=== PATIENT | male | born 1985 | race Caucasian/White ===

== ENCOUNTER 2016-10-14 08:54 | Emergency (ER) | payer SELFPAY ==
[~2016-10-14] VITALS: Ht 180.3 cm; Wt 113.0 kg
[2016-10-14 08:55] VITALS: BP 174/103; PULSE 66; RESP 18; TEMP 98.4; O2SAT 99
[2016-10-14] MEDS ORDERED: SODIUM CHLOR 0.9% 1000 ML INJ 1,000 ML IV SCH (09:17)
[2016-10-14 09:18] VITALS: RESP 17; O2SAT 98
[2016-10-14] MEDS: SODIUM CHLORIDE 0.9% FLUSH 10 ML FLUSH IV FLUSH PRN ×2 (09:25→10:30)
--- NOTE | 2016-10-14 09:25 | PD ---
HPI Chief Complaint: Complaint Time Seen by Provider: 09:16 Travel History International Travel<30 days: No Contact w/Intl Traveler<30days: No Traveled to known affect area: No History of Present Illness HPI The patient is a 31-year-old male who presents emergency department for one week history of right flank pain. The patient complains of right mid back pain that radiates to the right flank with a lot of suprapubic pressure and discomfort. The patient does have a previous history of left nephrectomy, donated to his uncle in 2002 in [place], [place]. Patient has a history of previous kidney stones with similar symptoms, but denies any dysuria or visible hematuria. The symptoms have been ongoing for a week, pain is currently 9/10, radiates to the suprapubic region with pressure, was associated with one episode of syncopal micturition yesterday. Symptoms are moderate, similar to previous kidney stones, and there are no current alleviating factors. PFSH Past Medical History Narrative Medical Denies Past Surgical History Narrative Surgical Left nephrectomy Social History Tobacco Use: Yes Allergies-Medications (Allergen,Severity, Reaction): Coded Allergies: Tramadol (Verified Adverse Reaction, Severe, VOMITING, 10/14/16) Reported Meds & Prescriptions Reported Meds & Active Scripts Active Fowler (Hydrocodone-Acetaminophen) 5-325 mg Tab 1 Tab PO Q6H PRN Ibuprofen 600 Mg Tab 600 Mg PO Q6H PRN Review of Systems Except as stated in HPI: all other systems reviewed are Neg General / Constitutional: No: Fever Cardiovascular: No: Chest Pain or Discomfort Respiratory: Positive: Shortness of Breath Gastrointestinal: Positive: Nausea, Abdominal Pain, No: Vomiting, Diarrhea Genitourinary: Positive: Flank Pain, Other (suprapubic pressure), No: Dysuria Neurologic: Positive: Paresthesia (facial paresthesias) Physical Exam Narrative GENERAL: Awake, alert, pleasant 31-year-old male who appears his stated age and is in no acute respiratory distress. SKIN: Focused skin assessment warm/dry. HEAD: Atraumatic. Normocephalic. EYES: Pupils equal and round. No scleral icterus. No injection or drainage. ENT: No nasal bleeding or discharge. Mucous membranes pink and moist. NECK: Trachea midline. No JVD. CARDIOVASCULAR: Regular rate and rhythm. No murmur appreciated. RESPIRATORY: No accessory muscle use. Clear to auscultation. Breath sounds equal bilaterally. GASTROINTESTINAL: Abdomen soft, mild suprapubic tenderness noted. Well-healed midline incisional scar from the umbilicus inferiorly. Back: No CVA tenderness. MUSCULOSKELETAL: No obvious deformities. No clubbing. No cyanosis. No edema. NEUROLOGICAL: Awake and alert. No obvious cranial nerve deficits. Motor grossly within normal limits. Normal speech. PSYCHIATRIC: Appropriate mood and affect; insight and judgment normal. Data Data Last Documented VS Vital Signs Date Time Temp Pulse Resp B/P Pulse Ox O2 Delivery O2 Flow Rate FiO2 10/14/16 10:30 65 17 161/94 99 Room Air 10/14/16 08:55 98.4 Orders Complete Blood Count With Diff (10/14/16:) Comprehensive Metabolic Panel (10/14/16:17) Lipase (10/14/16:) Urinalysis - C+S If Indicated (10/14/16 09:) Ct Abd/Pel W/O Iv Contrast (10/14/16:17) Iv Access Insert/Monitor (10/14/16 09:17) Ecg Monitoring (10/14/16:17) Oximetry (10/14/16 09:17) Morphine Inj (Morphine Inj) (10/14/16 09:30) Ondansetron Inj (Zofran Inj) (10/14/16 09:30) Sodium Chlor 0.9% 1000 Ml Inj (Ns 1000 M (10/14/16 09:17) Sodium Chloride 0.9% Flush (Ns Flush) (10/14/16 09:30) Gc And Chlamydia Pcr (10/14/16 10:50) Azithromycin Powd Pack (Zithromax Powd P (10/14/16 11:00) Ceftriaxone Inj (Rocephin Inj) (10/14/16 11:00) Sodium Chloride 0.9% Flush (Ns Flush) (10/14/16 11:00) Lidocaine 1% Inj (50 Ml) (Xylocaine 1% I (10/14/16 11:00) Labs Laboratory Tests Test 10/14/16 09:30 White Blood Count 8.3 TH/MM3 Red Blood Count 4.70 MIL/MM3 Hemoglobin 14.8 GM/DL Hematocrit 44.4 % Mean Corpuscular Volume 94.6 FL Mean Corpuscular Hemoglobin 31.6 PG Mean Corpuscular Hemoglobin 33.4 % Concent Red Cell Distribution Width 14.1 % Platelet Count 217 TH/MM3 Mean Platelet Volume 8.0 FL Neutrophils (%) (Auto) 71.0 % Lymphocytes (%) (Auto) 21.4 % Monocytes (%) (Auto) 5.4 % Eosinophils (%) (Auto) 1.5 % Basophils (%) (Auto) 0.7 % Neutrophils # (Auto) 5.9 TH/MM3 Lymphocytes # (Auto) 1.8 TH/MM3 Monocytes # (Auto) 0.5 TH/MM3 Eosinophils # (Auto) 0.1 TH/MM3 Basophils # (Auto) 0.1 TH/MM3 CBC Comment DIFF FINAL Differential Comment Urine Color LIGHT-YELLOW Urine Turbidity CLEAR Urine pH 6.5 Urine Specific [place] 1.004 Urine Protein NEG mg/dL Urine Glucose (UA) 70 mg/dL Urine Ketones NEG mg/dL Urine Occult Blood NEG Urine Nitrite NEG Urine Bilirubin NEG Urine Urobilinogen LESS THAN 2.0 MG/DL Urine Leukocyte Esterase NEG Urine WBC LESS THAN 1 /hpf Microscopic Urinalysis Comment CULT NOT INDICATED Sodium Level 139 MEQ/L Potassium Level 3.7 MEQ/L Chloride Level 109 MEQ/L Carbon Dioxide Level 24.0 MEQ/L Anion Gap 6 MEQ/L Blood Urea Nitrogen 8 MG/DL Creatinine 0.78 MG/DL Estimat Glomerular Filtration 115 ML/MIN Rate Random Glucose 165 MG/DL Calcium Level 9.3 MG/DL Total Bilirubin 0.4 MG/DL Aspartate Amino Transf 22 U/L (AST/SGOT) Alanine Aminotransferase 22 U/L (ALT/SGPT) Alkaline Phosphatase 113 U/L Total Protein 7.5 GM/DL Albumin 3.8 GM/DL Lipase 283 U/L [facility] Medical Decision Making Medical Screen Exam Complete: Yes Emergency Medical Condition: Yes Medical Record Reviewed: Yes Interpretation(s) Laboratory Tests Test 10/14/16 09:30 White Blood Count 8.3 TH/MM3 Red Blood Count 4.70 MIL/MM3 Hemoglobin 14.8 GM/DL Hematocrit 44.4 % Mean Corpuscular Volume 94.6 FL Mean Corpuscular Hemoglobin 31.6 PG Mean Corpuscular Hemoglobin 33.4 % Concent Red Cell Distribution Width 14.1 % Platelet Count 217 TH/MM3 Mean Platelet Volume 8.0 FL Neutrophils (%) (Auto) 71.0 % Lymphocytes (%) (Auto) 21.4 % Monocytes (%) (Auto) 5.4 % Eosinophils (%) (Auto) 1.5 % Basophils (%) (Auto) 0.7 % Neutrophils # (Auto) 5.9 TH/MM3 Lymphocytes # (Auto) 1.8 TH/MM3 Monocytes # (Auto) 0.5 TH/MM3 Eosinophils # (Auto) 0.1 TH/MM3 Basophils # (Auto) 0.1 TH/MM3 CBC Comment DIFF FINAL Differential Comment Urine Color LIGHT-YELLOW Urine Turbidity CLEAR Urine pH 6.5 Urine Specific [place] 1.004 Urine Protein NEG mg/dL Urine Glucose (UA) 70 mg/dL Urine Ketones NEG mg/dL Urine Occult Blood NEG Urine Nitrite NEG Urine Bilirubin NEG Urine Urobilinogen LESS THAN 2.0 MG/DL Urine Leukocyte Esterase NEG Urine WBC LESS THAN 1 /hpf Microscopic Urinalysis Comment CULT NOT INDICATED Sodium Level 139 MEQ/L Potassium Level 3.7 MEQ/L Chloride Level 109 MEQ/L Carbon Dioxide Level 24.0 MEQ/L Anion Gap 6 MEQ/L Blood Urea Nitrogen 8 MG/DL Creatinine 0.78 MG/DL Estimat Glomerular Filtration 115 ML/MIN Rate Random Glucose 165 MG/DL Calcium Level 9.3 MG/DL Total Bilirubin 0.4 MG/DL Aspartate Amino Transf 22 U/L (AST/SGOT) Alanine Aminotransferase 22 U/L (ALT/SGPT) Alkaline Phosphatase 113 U/L Total Protein 7.5 GM/DL Albumin 3.8 GM/DL Lipase 283 U/L CT of the abdomen and pelvis reveals left adrenal mass most likely adenoma and follow-up is suggested with abdominal MRI with and without contrast in 6 months unless there are prior imaging studies for direct comparison. Otherwise unremarkable. Differential Diagnosis Differential diagnosis includes nephrolithiasis, hydronephrosis, pyelonephritis , hypercalcemia, hypokalemia, micturition syncope, dehydration. Narrative Course IV was established, labs are drawn and sent, and the patient was placed on cardiac telemetry monitoring and continuous pulse oximetry monitoring. The patient was housekeeper nanny morphine, Zofran, and IV fluids. UA was sent to lab. Noncontrast CT of the abdomen and pelvis was ordered. Labs are unremarkable, UA is negative except for [address] of the abdomen and pelvis reveals left adrenal mass most likely adenoma and follow-up is suggested with abdominal MRI with and without contrast in 6 months unless her prior imaging studies for direct comparison. No obvious abnormality noted with CT for the patient's right flank, however, labs and CT are reassuring. The patient will be provided a copy of his CT results and lab results at discharge, he is advised to follow- up with her primary physician on an outpatient basis. Diagnosis Primary Impression: Right flank pain Patient Instructions: General Instructions Additional Instructions: Please provide the patient copy of his CT results and lab results at discharge. Follow-up with a primary physician. Return if symptoms worsen or progress. Med/Other Pt SpecificInfo: Prescription(s) given Scripts Phenazopyridine (Pyridium)100 Mg [id number] Mg PO Q8H PRN (DYSURIA) 2 Days Ref 0 Prov:Gerry Houser MD 10/14/16 Hydrocodone-Acetaminophen (Fowler)5-325 mg Tab1 Tab PO Q6H PRN (PAIN) #12 TAB Ref 0 Prov:Gerry Houser MD 10/14/16 Ibuprofen 600 Mg [id number] Mg PO Q6H PRN (Pain/Inflammation) #20 TAB Ref 0 Prov:Gerry Houser MD 10/14/16 Disposition: 01 DISCHARGE HOME Condition: Stable Gerry Houser MD Oct 14, 2016 09:25
[2016-10-14] MEDS ORDERED: MORPHINE SULFATE 4 MG/ML INJ IV PUSH ONE ×2 (09:30→11:00)
[2016-10-14] MEDS ORDERED: ONDANSETRON HCL 4 MG/2 ML VIAL IVP ONE (09:30)
[2016-10-14 09:48] LABS: AUTOMATED NEUTROPHIL # 5.9 TH/MM3 (1.8-7.7); BASOPHIL # 0.1 TH/MM3 (0-0.2); BASOPHIL % 0.7 % (0.0-2.0); EOSINOPHIL # 0.1 TH/MM3 (0-0.4); EOSINOPHIL % 1.5 % (0.0-4.0); HEMATOCRIT 44.4 % (39.0-51.0); HEMO FLAGS DIFF FINAL; LYMPH % 21.4 % (9.0-44.0); LYMPHOCYTE # 1.8 TH/MM3 (1.0-4.8); MEAN CELL VOLUME 94.6 FL (80.0-100.0); MEAN CORPUSCULAR HEMOGLOBIN 31.6 PG (27.0-34.0); MEAN CORPUSCULAR HGB CONC 33.4 % (32.0-36.0); MONO % 5.4 % (0.0-8.0); PLATELET COUNT 217 TH/MM3 (150-450); RED CELL DISTRIBUTION WIDTH 14.1 % (11.6-17.2); WHITE BLOOD COUNT 8.3 TH/MM3 (4.0-11.0)
[2016-10-14 09:55] LABS: BLOOD, URINE NEG (NEG); GLUCOSE,URINE 70 mg/dL (NEG); KETONE, URINE NEG (NEG); NITRITE,URINE NEG (NEG); PH, URINE 6.5 (5.0-8.5); URINE COLOR LIGHT-YELLOW (YELLW/STRAW)
[2016-10-14 09:58] LABS: COMMENT (UR) CULT NOT INDICATED; CULTURE IF INDICATED CULT NOT INDICATED
[2016-10-14 10:03] LABS: ANION GAP 6 MEQ/L (5-15); AST (GOT) 22 U/L (15-37); BLOOD UREA NITROGEN 8 MG/DL (7-18); CHLORIDE 109 MEQ/L (98-107); GLOMERULAR FILTRATION RATE 115 ML/MIN (>89); POTASSIUM 3.7 MEQ/L (3.5-5.1); SODIUM (NA) 139 MEQ/L (136-145)
[2016-10-14 10:04] LABS: ALT (GPT) 22 U/L (12-78)
[2016-10-14 10:06] LABS: ALKALINE PHOSPHATASE 113 U/L (45-117); TOTAL BILIRUBIN ADULT 0.4 MG/DL (0.2-1.0)
[2016-10-14 10:30] VITALS: BP 161/94; PULSE 65; RESP 17; O2SAT 99
--- NOTE | 2016-10-14 10:39 | RADRPT ---
EXAM DATE/TIME: 10/14/2016 10:13 [facility] COMPARISON: No previous studies available for comparison. INDICATIONS : Right flank pain. History of left nephrectomy. ORAL CONTRAST: No oral contrast ingested. RADIATION DOSE: 8.43 CTDIvol (mGy) MEDICAL HISTORY : None SURGICAL HISTORY : Nephrectomy, left. ENCOUNTER: Initial ACUITY: 1 day PAIN SCALE: 6/10 LOCATION: Right flank TECHNIQUE: Volumetric scanning of the abdomen and pelvis was performed. Using automated exposure control and ad justment of the mA and/or kV according to patient size, radiation dose was kept as low as reasonably achievable to obtain optimal diagnostic quality images. DICOM format image data is available electro nically for review and comparison. FINDINGS: CT Abdomen: The liver, spleen, pancreas, right kidney, right adrenal are unremarkable. There is an ap proximate 3.1 cm mass in the left adrenal gland which is low attenuating probably an adenoma. The lef t kidney is absent surgically. There is no evidence for any stones in the right kidney or the course of the right ureter. There is no hydronephrosis.There is no evidence for any appreciable pathological adenopathy, free fluid, or bowel obstruction. CT pelvis: There is no evidence for mass, abscess formation, or any significant adenopathy within the pelvis. CONCLUSION: 1. Left adrenal mass most likely an adenoma and follow up is suggested with abdominal MRI with and wi thout contrast in 6 months unless there are prior imaging studies for direct comparison. 2. Otherwise unremarkable. Chang Wiley MD on October 14, 2016 at 10:27 Board Certified Radiologist. This report was verified electronically.
[2016-10-14] MEDS ORDERED: IBUP-232 PO (10:49)
[2016-10-14] MEDS ORDERED: NORC5TAB PO (10:49)
[2016-10-14] MEDS ORDERED: PHEN0.4T PO (10:52)
[2016-10-14] MEDS ORDERED: AZITHROMYCIN PWD FOR SUSP 1 GM PACKET PO ONE (11:00)
[2016-10-14] MEDS ORDERED: cefTRIAXone 250 MG VIAL IM ONE (11:00)
[2016-10-14] MEDS ORDERED: LIDOCAINE HCL 1% 50 ML VIAL XX ONE (11:00)
[2016-10-14] MEDS ORDERED: SODIUM CHLORIDE 0.9% FLUSH 10 ML FLUSH IVF PRN (11:00)
[2016-10-14 11:20] VITALS: RESP 16
[2016-10-14 11:44] VITALS: BP 130/84; TEMP 97.8
[2016-10-15 03:16] LABS: CHLAMYDIA PCR NOT DETECTED (NOT DETECT); NEISSERIA PCR NOT DETECTED (NOT DETECT)
== END 2016-10-14 11:44 | disposition home or self-care (01) ==
LOC: NEPD 08:54
DX: R10.31 Right lower quadrant pain (principal); N28.9 Disorder of kidney and ureter, unspecified; Z90.5 Acquired absence of kidney; R06.02 Shortness of breath; R11.0 Nausea; R20.9 Unspecified disturbances of skin sensation
CPT/HCPCS: 74176; 80053; 81001; 83690; 85025; 87491; 87591; 96361; 96372; 96374; 96375; 96376; 99285; J0696; J2270; J2405; J7030

== ENCOUNTER 2016-11-10 07:50 | Emergency (ER) | payer SELFPAY ==
[~2016-11-10] VITALS: Ht 180.3 cm; Wt 104.0 kg
[~2016-11-10 07:50] MED LIST: IBUP-232 PO; NORC5TAB PO; PHEN0.4T PO
[2016-11-10 07:52] VITALS: BP 184/99; PULSE 88; RESP 20; TEMP 98.8; O2SAT 99
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
[2016-11-10] MEDS ORDERED: IBUP800T23 PO (08:09)
[2016-11-10] MEDS ORDERED: ROBA500T PO (08:09)
[2016-11-10] MEDS ORDERED: ORPHENADRINE INJ 60 MG/2 ML AMP IM ONE (08:15)
[2016-11-10] MEDS ORDERED: KETOROLAC TROMETHAMINE 60 MG/2 ML (IM) VIAL IM ONE (08:15)
== END 2016-11-10 08:46 | disposition home or self-care (01) ==
LOC: NEPK 07:50
DX: M54.41 Lumbago with sciatica, right side (principal); F17.200 Nicotine dependence, unspecified, uncomplicated
CPT/HCPCS: 96372; 99284; J1885; J2360

== ENCOUNTER 2016-12-02 09:35 | Emergency (ER) | payer SELFPAY ==
[~2016-12-02] VITALS: Ht 180.3 cm; Wt 105.0 kg
[~2016-12-02 09:35] MED LIST changes: -IBUP-232 PO; +IBUP800T23 PO; -NORC5TAB PO; -PHEN0.4T PO; +ROBA500T PO
[2016-12-02 09:36] VITALS: BP 158/98; PULSE 75; RESP 16; TEMP 98.4; O2SAT 98
[2016-12-02 10:18] LABS: BACTERIA, URINE OCC /hpf; BLOOD, URINE LARGE (NEG); COMMENT (UR) CULT NOT INDICATED; CULTURE IF INDICATED CULT NOT INDICATED; GLUCOSE,URINE 150 mg/dL (NEG); KETONE, URINE TRACE mg/dL (NEG); MUCUS URINE FEW /lpf (OCC); NITRITE,URINE NEG (NEG); URINE COLOR YELLOW (YELLW/STRAW)
--- NOTE | 2016-12-02 10:46 | PD ---
HPI Chief Complaint: Complaint Time Seen by Provider: 10:46 Travel History International Travel<30 days: No Contact w/Intl Traveler<30days: No Traveled to known affect area: No History of Present Illness HPI 31-year-old male came to the emergency room with history of right flank pain radiating down into his penis. Patient has significant history of recurrent stones. He also has history of left nephrectomy in 2002 because he donated his kidney. He seems uncomfortable. He says usually when he passed the stone it is done and over with in 2-3 days. However this time the pain has lingered on for more than a week. He gets intermittent sharp and strong penile pain and when goes to lay down his right flank hurts. No history of nausea vomiting. Vital signs were stable. Was blood work and urine done in the waiting room prior to patient coming into the room. No history of fever or chills. PFSH Past Medical History Narrative Medical List of his past medical, surgical, social and family history reviewed from the nursing note. Diminished Hearing: No Kidney Stones: Yes Past Surgical History Other Surgery: Yes (KIDNEY TRASPLANT DONOR 2002) Social History Alcohol Use: No (PT DENIES) Tobacco Use: Yes (/2 ppd) Substance Use: No (PT DENIES) Allergies-Medications (Allergen,Severity, Reaction): Coded Allergies: tramadol (Verified Adverse Reaction, Severe, VOMITING, 12/02/16) Comments List of his allergies reviewed from the nursing note. Reported Meds & Prescriptions Reported Meds & Active Scripts Active Ciprofloxacin (Ciprofloxacin HCl) 500 Mg Tab 500 Mg PO BID 10 Days Narrative Medication List of his home medications reviewed from the nursing note. Review of Systems Except as stated in HPI: all other systems reviewed are Neg Physical Exam Narrative GENERAL: Awake, alert, anxious, moderate distress SKIN: Focused skin assessment warm/dry. HEAD: Atraumatic. Normocephalic. EYES: Pupils equal and round. No scleral icterus. No injection or drainage. ENT: No nasal bleeding or discharge. Mucous membranes pink and moist. NECK: Trachea midline. No JVD. CARDIOVASCULAR: Regular rate and rhythm. No murmur appreciated. RESPIRATORY: No accessory muscle use. Clear to auscultation. Breath sounds equal bilaterally. GASTROINTESTINAL: Abdomen soft, non-tender, nondistended. Hepatic and splenic margins not palpable. MUSCULOSKELETAL: No obvious deformities. No clubbing. No cyanosis. No edema. NEUROLOGICAL: Awake and alert. No obvious cranial nerve deficits. Motor grossly within normal limits. Normal speech. PSYCHIATRIC: Appropriate mood and affect; insight and judgment normal. Data Data Last Documented VS Vital Signs Date Time Temp Pulse Resp B/P (MAP) Pulse Ox O2 Delivery O2 Flow Rate FiO2 12/02/16 13:25 97.8 76 16 128/81 (97) 99 12/02/16 12:00 Room Air Orders Orders Complete Blood Count With Diff (12/02/16 09:41) Urinalysis - C+S If Indicated (12/02/16 09:41) Basic Metabolic Panel (Bmp) (12/02/16 09:41) Ketorolac Inj (Toradol Inj) (12/02/16 11:15) Ct Abd/Pel W/O Iv Contrast (12/02/16 ) Ondansetron Inj (Zofran Inj) (12/02/16 11:30) Morphine Inj (Morphine Inj) (12/02/16 11:30) Labs Laboratory Tests Test 12/02/16 10:04 12/02/16 10:34 Urine Color YELLOW Urine Turbidity CLEAR Urine pH 6.0 Urine Specific [place] 1.023 Urine Protein 30 mg/dL Urine Glucose (UA) 150 mg/dL Urine Ketones TRACE mg/dL Urine Occult Blood LARGE Urine Nitrite NEG Urine Bilirubin NEG Urine Urobilinogen LESS THAN 2.0 MG/DL Urine Leukocyte Esterase NEG Urine RBC 159 /hpf Urine WBC 1 /hpf Urine Bacteria OCC /hpf Urine Mucus FEW /lpf Microscopic Urinalysis Comment CULT NOT INDICATED White Blood Count 6.2 TH/MM3 Red Blood Count 5.19 MIL/MM3 Hemoglobin 15.9 GM/DL Hematocrit 47.6 % Mean Corpuscular Volume 91.7 FL Mean Corpuscular Hemoglobin 30.6 PG Mean Corpuscular Hemoglobin Concent 33.3 % Red Cell Distribution Width 14.7 % Platelet Count 238 TH/MM3 Mean Platelet Volume 7.1 FL Neutrophils (%) (Auto) 58.9 % Lymphocytes (%) (Auto) 29.9 % Monocytes (%) (Auto) 8.3 % Eosinophils (%) (Auto) 2.2 % Basophils (%) (Auto) 0.7 % Neutrophils # (Auto) 3.6 TH/MM3 Lymphocytes # (Auto) 1.8 TH/MM3 Monocytes # (Auto) 0.5 TH/MM3 Eosinophils # (Auto) 0.1 TH/MM3 Basophils # (Auto) 0.0 TH/MM3 CBC Comment DIFF FINAL Differential Comment Blood Urea Nitrogen 8 MG/DL Creatinine 0.89 MG/DL Random Glucose 164 MG/DL Calcium Level 8.9 MG/DL Sodium Level 141 MEQ/L Potassium Level 3.8 MEQ/L Chloride Level 107 MEQ/L Carbon Dioxide Level 25.1 MEQ/L Anion Gap 9 MEQ/L Estimat Glomerular Filtration Rate 98 ML/MIN MDM Medical Decision Making Medical Screen Exam Complete: Yes Emergency Medical Condition: Yes Medical Record Reviewed: Yes Differential Diagnosis Ureteral colic, bladder calculus, renal mass Narrative Course 1:02 PM blood test results were within normal limit except for his blood sugar which is slightly elevated. UA shows glucose as well as RBCs. Upon discussing with the patient he said that he was once diagnosed with early diabetes and had to do diet control. Recently he has not been eating right and yesterday he ate her doughnut. His blood sugar is not tremendously high and given the fact that he has only one kidney him not starting him on any oral hypoglycemics. I will discharge him home with instructions for diet control again. He will have to get a primary care friends of and get a glucose tolerance test done as an outpatient. CT scan report came back which shows a 3 cm adrenal adenoma on the left flank but otherwise negative. I'll discharge him home with a prescription for Cipro for possible prostatitis. Procedures EKG Prior to Arrival: No Diagnosis Primary Impression: Right flank pain Additional Impressions: Penile pain possible prostatitis left nephrectomy Prediabetes Referrals: Primary Care Physician Additional Instructions: You must get a primary care for yourselves as soon as possible. Blood tests and urine test is suggestive of prediabetes phase. You primary care needs to order an outpatient glucose tolerance test. In the meanwhile please do diet control and minimize your simple carbohydrate intake along with sweet food. Drink lots of fluid. Take the antibiotic as per the prescription direction. Return to the ER if the symptoms worsen or any other new concerns. Med/Other Pt SpecificInfo: Prescription(s) given Scripts Ciprofloxacin (Ciprofloxacin) 500 Mg Tab 500 MG PO BID for Infection for 10 Days, TAB 0 Refills Prov: Gurwinder Faulkner MD 12/02/16 Disposition: 01 DISCHARGE HOME Condition: Stable Gurwinder Faulkner MD Dec 02, 2016 10:46
[2016-12-02 10:50] LABS: AUTOMATED NEUTROPHIL # 3.6 TH/MM3 (1.8-7.7); BASOPHIL % 0.7 % (0.0-2.0); EOSINOPHIL # 0.1 TH/MM3 (0-0.4); EOSINOPHIL % 2.2 % (0.0-4.0); HEMATOCRIT 47.6 % (39.0-51.0); HEMO FLAGS DIFF FINAL; LYMPH % 29.9 % (9.0-44.0); LYMPHOCYTE # 1.8 TH/MM3 (1.0-4.8); MEAN CELL VOLUME 91.7 FL (80.0-100.0); MEAN CORPUSCULAR HEMOGLOBIN 30.6 PG (27.0-34.0); MEAN CORPUSCULAR HGB CONC 33.3 % (32.0-36.0); MONO % 8.3 % (0.0-8.0); NEUT % 58.9 % (16.0-70.0); PLATELET COUNT 238 TH/MM3 (150-450); RED BLOOD COUNT 5.19 MIL/MM3 (4.50-5.90); RED CELL DISTRIBUTION WIDTH 14.7 % (11.6-17.2); WHITE BLOOD COUNT 6.2 TH/MM3 (4.0-11.0)
[2016-12-02 11:00] LABS: BICARBONATE 25.1 MEQ/L (21.0-32.0); POTASSIUM 3.8 MEQ/L (3.5-5.1)
[2016-12-02] MEDS ORDERED: KETOROLAC TROMETHAMINE 30 MG/ML (IVP) VIAL IV PUSH ONE (11:15)
[2016-12-02] MEDS ORDERED: ONDANSETRON HCL 4 MG/2 ML VIAL IV PUSH ONE (11:30)
[2016-12-02] MEDS ORDERED: MORPHINE SULFATE 4 MG/ML INJ IV PUSH ONE (11:30)
[2016-12-02 12:00] VITALS: BP 152/83; PULSE 72; RESP 16; TEMP 97.9; O2SAT 99
[2016-12-02 12:06] VITALS: RESP 16
--- NOTE | 2016-12-02 12:25 | RADRPT ---
EXAM DATE/TIME: 12/02/2016 11:51 [place] COMPARISON: CT ABDOMEN & PELVIS W/O CONTRAST, October 14, 2016, 10:13. INDICATIONS : Right side pain,difficulty urinating,hx of kidney stones. ORAL CONTRAST: No oral contrast ingested. RADIATION DOSE: 13.18 CTDIvol (mGy) MEDICAL HISTORY : Renal calculi. SURGICAL HISTORY : Donated left kidney ENCOUNTER: Initial ACUITY: 1 day PAIN SCALE: 4/10 LOCATION: Right Abdomen TECHNIQUE: Volumetric scanning of the abdomen and pelvis was performed. Using automated exposure control and ad justment of the mA and/or kV according to patient size, radiation dose was kept as low as reasonably achievable to obtain optimal diagnostic quality images. DICOM format image data is available electro nically for review and comparison. FINDINGS: LOWER LUNGS: The visualized lower lungs are clear. LIVER: Homogeneous density without lesion. There is no dilation of the biliary tree. No calcified gallston es. Gallbladder cys luminal structure without wall thickening SPLEEN: Normal size without lesion. PANCREAS: Within normal limits. KIDNEYS: Surgical absence of the left kidney with compensatory hypertrophy of the right kidney and no evidence of renal or ureteral calculi or hydronephrosis.. ADRENAL GLANDS: 3 cm left adrenal adenoma unchanged. VASCULAR: There is no aortic aneurysm. BOWEL/MESENTERY: The stomach, small bowel, and colon demonstrate no acute abnormality. There is no free intraperitone al air or fluid. Appendix visualized and normal. ABDOMINAL WALL: Within normal limits. RETROPERITONEUM: There is no lymphadenopathy. BLADDER: No wall thickening or mass. REPRODUCTIVE: Within normal limits. INGUINAL: There is no lymphadenopathy or hernia. MUSCULOSKELETAL: Within normal limits for patient age. CONCLUSION: Surgical absence of the left kidney. Compensatory hypertrophy of the right kidney with no evidence of renal or ureteral calculi or obstructive uropathy. The bladder is normal. There is a 3 cm low-density left adrenal adenoma.. Carlos Schmitz MD on December 02, 2016 at 12:18 Board Certified Radiologist. This report was verified electronically.
[2016-12-02] MEDS ORDERED: CIPR500T2 PO (13:05)
[2016-12-02 13:25] VITALS: BP 128/81; TEMP 97.8
== END 2016-12-02 13:25 | disposition home or self-care (01) ==
LOC: NEPD 09:35
DX: R10.9 Unspecified abdominal pain (principal); N48.89 Other specified disorders of penis; R73.03 Prediabetes; F17.200 Nicotine dependence, unspecified, uncomplicated; Z88.5 Allergy status to narcotic agent
CPT/HCPCS: 74176; 80048; 81001; 85025; 96374; 96375; 99285; J1885; J2270; J2405

== ENCOUNTER 2017-09-07 16:29 | Emergency (ER) | payer SELFPAY ==
[~2017-09-07] VITALS: Ht 180.3 cm; Wt 105.0 kg
[~2017-09-07 16:29] MED LIST changes: +CIPR500T2 PO; -IBUP800T23 PO; -ROBA500T PO
[2017-09-07 17:40] VITALS: BP 133/71; PULSE 101; RESP 20; TEMP 98; O2SAT 95
== END 2017-09-07 17:44 | disposition left against medical advice (07) ==
LOC: NED 16:29
DX: R07.9 Chest pain, unspecified (principal)
CPT/HCPCS: 99281